=== PATIENT | female | born 1980 | race Caucasian/White ===

== ENCOUNTER 2019-01-23 12:18 | Emergency (ER) | payer OTHER ==
[~2019-01-23] VITALS: Ht 162.6 cm; Wt 74.8 kg
[2019-01-23] MEDS ORDERED: OBSTETRIX DHA1 EACH PO (12:34)
== END 2019-01-23 15:39 | disposition home or self-care (01) ==
LOC: ER 12:18
DX: O20.0 Threatened abortion (principal)

== ENCOUNTER 2019-01-26 11:59 | Day surgery (SDC) | payer OTHER ==
[~2019-01-26 11:59] MED LIST: OBSTETRIX DHA1 EACH PO
== END 2019-01-26 16:40 | disposition home or self-care (01) ==
LOC: CIR.AMB 11:59
DX: O03.4 Incomplete spontaneous abortion without complication (principal)